=== PATIENT | male | born 1970 | race Hispanic/Latino ===

== ENCOUNTER → 2024-08-10 08:38 | Outpatient (REF) | payer BC, SELFPAY | LOC: RAD 08:38 | PROVIDERS: ATTENDING PHYSICIAN Podiatrist Foot & Ankle Surgery; FAMILY PHYSICIAN Family Medicine | DX: S99.922D Unspecified injury of left foot, subsequent encounter (principal); S93.529D Sprain of metatarsophalangeal joint of unspecified toe(s), subsequent encounter; S90.122D Contusion of left lesser toe(s) without damage to nail, subsequent encounter | CPT/HCPCS: 76882 ==